=== PATIENT | female | born 2000 | race Caucasian/White ===

== ENCOUNTER 2021-09-01 15:20 | Emergency (ER) | payer BC, MEDICAID, SELFPAY ==
[2021-09-01 15:22] VITALS: BP 149/60; PULSE 92; RESP 17; TEMP 36.2; O2SAT 99
[2021-09-01 17:56] VITALS: BP 138/78; PULSE 78; RESP 20; O2SAT 100
[2021-09-01] MEDS: SODIUM CHLORIDE 0.9% IV 1,000 ML 999 ML IV CONT (18:14)
[2021-09-01] MEDS: diphenhydrAMINE HCl INJ 50 MG/ML VIAL 25 MG IV PUSH (18:16)
[2021-09-01] MEDS: PROCHLORPERAZINE EDISYLATE 10 MG/2 ML VIAL IV PUSH (18:17)
--- NOTE | 2021-09-01 18:52 | ED.HA ---
HPI - Headache General Chief Complaint: Headache Stated Complaint: headache Time Seen by Provider: 09/01/21 17:50 Source: patient History of Present Illness HPI Narrative: Patient presents with headache. Reports headache started yesterday has been slowly been getting worse she took Excedrin which did not seem to help so she came to the ER for evaluation. She reports a history of migraine headaches usually is able to control them with Excedrin however today's headache did not resolve. She reported some nausea and lightheadedness earlier but the symptoms have resolved. She denies any focal numbness or weakness. She denies any changes in vision she denies any recent spinal instrumentation denies any IV drug use Related Data Allergies Allergy/AdvReac Type Severity Reaction Status Date / Time No Known Allergies Allergy Verified 09/01/21 18:17 Review of Systems Review of Systems: CONSTITUTIONAL: Denies fever, chills, or sweats. EYES: Denies visual changes, redness, or discharge. ENT: Denies rhinorrhea, congestion, sore throat, or otalgia. CARDIOVASCULAR: Denies chest pain, palpitations, or edema. RESPIRATORY: Denies cough or dyspnea. GASTROINTESTINAL: Denies abdominal pain, current nausea, vomiting, or diarrhea. GENITOURINARY: Denies dysuria or hematuria. SKIN: Denies rash or itching. MUSCULOSKELETAL: Denies back pain, joint pain, or myalgia. NEUROLOGIC: Denies numbness, dizziness, or weakness. PSYCHIATRIC: Denies anxiety or depression. All systems reviewed & are unremarkable except as noted in HPI and below PMFSH Past Medical History Medical History (Updated 09/01/21 @ 18:55 by Kian Batres MD) Migraines Social History Social History (Updated 09/01/21 @ 18:53 by Kian Batres MD) Smoking status: Current every day smoker Alcohol intake: never Substance use: never Exam Narrative: GENERAL: Well-appearing, well-nourished, and in no acute distress. HEAD: Normocephalic, atraumatic. EYES: PERRLA and EOMI. ENT: Nares clear, no rhinorrhea or epistaxis. Mucous membranes moist. NECK: Supple. No masses. No JVD CHEST: Clear to auscultation. No respiratory distress. No wheezes rales or rhonchi HEART: Regular rate and rhythm. No murmur heard. Normal peripheral pulses. ABDOMEN: Soft, nontender, nondistended, normal active bowel sounds. EXTREMITIES: Normal range of motion. No edema. SKIN: Warm, dry, no rash. NEURO: Cranial nerves II through XII are intact patient has 5 out of 5 strength in all extremities sensation intact to light touch in all extremities alert and oriented x3. PSYCH: Normal mood and affect. Course Reevaluation(s) Reevaluation #1: Patient reports feeling much improved. Plan reviewed with patient. Patient comfortable with outpatient plan. Date: 09/01/21 Time: 18:54 Vital Signs Vital signs: Vital Signs Temperature 36.2 C L 09/01/21 15:22 Pulse Rate 92 09/01/21 15:22 Respiratory Rate 17 09/01/21 15:22 Blood Pressure 149/60 H 09/01/21 15:22 Pulse Oximetry 99 09/01/21 15:22 Temperature 36.2 C L 09/01/21 15:22 Pulse Rate 72 09/01/21 19:40 Respiratory Rate 18 09/01/21 19:40 Blood Pressure 132/78 09/01/21 19:40 Pulse Oximetry 99 09/01/21 19:40 MDM - Headache MDM Narrative Medical decision making narrative: H&P as above, vss, pt looks clinically well, exam without focal neurological deficits, labs/img considered, symptomatic relief available as needed, on reevaluation pt continues to looks clinically well. Suspect migraine headache, dns intracranial hemorrhage, encephalitis, meningitis, mass. plan to tx/monitor as op w/ pcm f/u findings/plan discussed with pt, pt agree/comfortable with plan, return precautions given Discharge Plan Discharge Clinical Impression: Headache Qualifiers: Headache type: unspecified Headache chronicity pattern: unspecified pattern Intractability: not intractable Qualified Code(s): R51.9 - Headache, unspecified Patient Dispositi
[2021-09-01 19:40] VITALS: BP 132/78; PULSE 72; RESP 18; O2SAT 99
== END 2021-09-01 19:41 | disposition home or self-care (01) ==
PROVIDERS: Emergency Provider Emergency Medicine
DX: R51.9 Headache, unspecified (principal); F17.200 Nicotine dependence, unspecified, uncomplicated
CPT/HCPCS: 96361; 96365; 96375; 99284; J0131; J0780; J1200; J7030

== ENCOUNTER 2022-02-15 19:50 | Emergency (ER) | payer MEDICAID, SELFPAY ==
[2022-02-15 19:52] VITALS: BP 118/52; PULSE 91; RESP 16; TEMP 36.8; O2SAT 98
--- NOTE | 2022-02-15 21:57 | PC.NURSE ---
Pt walks out [facility] states she has 4week old puppies at home and has to get home to them.
== END 2022-02-15 22:09 | disposition left against medical advice (07) ==
LOC: ANHED 22:07
DX: S40.022A Contusion of left upper arm, initial encounter (principal); S40.021A Contusion of right upper arm, initial encounter
CPT/HCPCS: 99199

== ENCOUNTER 2022-05-03 23:29 | Emergency (ER) | payer OTHER, SELFPAY ==
[2022-05-03 23:30] VITALS: BP 120/57; PULSE 68; RESP 18; TEMP 36.6; O2SAT 99
[2022-05-04 01:41] LABS: Basophils Absolute Auto 0.1 K/mm3 (0.0-0.1); Basophils Percent Auto 0.5 % (0.2-1.2); Eosinophils Absolute Auto 0.3 K/mm3 (0-0.3); Eosinophils Percent Auto 2.1 % (0-4.4); Hematocrit 38.2 % (37.0-47.0); Hemoglobin 13.1 g/dL (12.0-15.0); Immature Granulocyte Absolute 0.05 K/mm3 (0.00-0.031); Immature Granulocyte Percent A 0.4 % (0-0.5); Lymphocytes Absolute Auto 3.61 K/mm3 (0.9-3.2); Lymphocytes Percent Auto 28.6 % (18.3-44.2); Mean Corpuscular HGB Conc 34.3 g/dl (32-36); Mean Corpuscular Volume 93.2 fl (80-100); Mean Platelet Volume 8.9 fl (7.4-10.4); Monocytes Absolute Auto 0.6 K/mm3 (0.1-0.6); Monocytes Percent Auto 4.8 % (2.6-8.5); Neutrophils Percent Auto 63.6 % (45.5-73.1); Platelet Count Result 284 k/mm3 (150-375); Red Cell Distribution Width 11.9 % (11.5-14.5); White Blood Count 12.6 K/mm3 (4.5-10.0)
[2022-05-04 02:06] LABS: Alanine Aminotransferase 18 U/L (6-35); Alkaline Phosphatase 56 U/L (38-126); Anion Gap 5 mmol/L (8-16); Aspartate Amino Transferase 20 U/L (14-36); Bilirubin,Total 0.2 mg/dL (0.2-1.3); Blood Urea Nitrogen 11 mg/dL (7-17); Calcium 8.5 mg/dL (8.4-10.2); Carbon Dioxide 26 mmol/L (22-30); Chloride 105 mmol/L (98-107); Estimated CRCL calculation 119 ml/min; Estimated Glomerular Filt Rate > 60; Glucose 95 mg/dL (65-110); Lipase 207 U/L (23-300); Potassium 3.7 mmol/L (3.4-5.0); Sodium 136 mmol/L (137-145)
[2022-05-04 02:15] VITALS: BP 83/65; PULSE 72; RESP 18; O2SAT 99
[2022-05-04 02:16] LABS: Appearance Urine Clear (Clear); Bilirubin Urine Negative (Negative); Blood Urine Negative (Negative); Color Urine Yellow (Yellow); Glucose Urine UA Negative (Negative); Ketones Urine Negative (Negative); Leukocyte Esterase Ur Negative LEU/UL (Negative); Nitrate Urine Negative (Negative); Protein Urine Negative (Negative); Urobilinogen Urine 0.2 mg/dL (<2.0); pH Urine 8.5 (5.0-9.0)
[2022-05-04 02:22] LABS: RBC Urine 0-2 /hpf (0-2); Squamous Epithelial Cell Urine Occasional /hpf (Few)
[2022-05-04 02:24] LABS: Add Urine Microscopic? NO
[2022-05-04 02:43] LABS: Beta HCG Quantitative < 2.39 mIU/ML
--- NOTE | 2022-05-04 03:48 | ED.GENADULT ---
HPI - General Adult General Chief complaint: Abdominal Pain Stated complaint: pain , throwing up Time Seen by Provider: 05/04/22 01:41 History of Present Illness HPI narrative: Patient is a 21-year-old female who presents with lower abdominal cramping. Ongoing over the last week. Associate with nausea. Patient vomited today. She feels like her hormones are going crazy. She reports she has been trying to get and was seen at [facility] but her evaluation did not reveal any . She reports she has had test that were positive in the last 2 days but also test that read your as well. She has no vaginal bleeding or vaginal discharge. Pain is cramping and more left-sided. No radiation. No urinary frequency urgency or dysuria. Related Data Allergies Allergy/AdvReac Type Severity Reaction Status Date / Time No Known Allergies Allergy Verified 09/01/21 18:17 Review of Systems Review of Systems: All systems reviewed & are unremarkable except as noted in HPI and below Constitutional: Constitutional: Denies chills and Denies fever(s) Cardiovascular: Cardiovascular: Denies chest pain and Denies rapid heart rate Respiratory: Respiratory: Denies cough and Denies dyspnea Gastrointestinal: Gastrointestinal: Reports abdominal pain, Denies constipation, Denies diarrhea, Reports nausea and Reports vomiting Genitourinary: Genitourinary: Denies abnormal vaginal bleeding, Denies dysuria, Denies pelvic pain, Denies flank pain and Denies vaginal discharge PMFSH Past Medical History Medical History (Updated 05/04/22 @ 03:49 by Avni Hernandez MD) Migraines Surgical History Surgical History (Updated 05/04/22 @ 19:29 by Avni Hernandez MD) No history of previous surgery Social History Social History (Updated 09/01/21 @ 18:53 by Kian Batres MD) Smoking status: Current every day smoker Alcohol intake: never Substance use: never Exam Narrative: GENERAL: Well-appearing, well-nourished, and in no acute distress. HEAD: Normocephalic, atraumatic. ENT: Mucous membranes moist. CHEST: Clear to auscultation. No respiratory distress. HEART: Regular rate and rhythm. Normal peripheral pulses. ABDOMEN: Soft, nontender, nondistended, normal active bowel sounds. EXTREMITIES: Normal range of motion. No edema. SKIN: Warm, dry, no rash. NEURO: Alert and oriented x3. PSYCH: Normal mood and affect. Course Course Emergency Course: Patient was having some left lower quadrant cramping but no rebound or guarding on exam. Patient may be developing GI illness. No evidence of . Recommend follow-up with PCP. Vital Signs Vital signs: Vital Signs Temperature 97.9 F 05/03/22 23:30 Pulse Rate 68 05/03/22 23:30 Respiratory Rate 18 05/03/22 23:30 Blood Pressure 120/57 L 05/03/22 23:30 Pulse Oximetry 99 05/03/22 23:30 Temperature 97.9 F 05/03/22 23:30 Pulse Rate 82 05/04/22 03:55 Respiratory Rate 16 05/04/22 03:55 Blood Pressure 107/51 L 05/04/22 03:55 Pulse Oximetry 100 05/04/22 03:55 Oxygen Delivery Room Air 05/04/22 02:15 Medical Decision Making Vital Signs Vital Signs: Vital Signs Temperature 97.9 F 05/03/22 23:30 Pulse Rate 68 05/03/22 23:30 Respiratory Rate 18 05/03/22 23:30 Blood Pressure 120/57 L 05/03/22 23:30 Pulse Oximetry 99 05/03/22 23:30 Temperature 97.9 F 05/03/22 23:30 Pulse Rate 82 05/04/22 03:55 Respiratory Rate 16 05/04/22 03:55 Blood Pressure 107/51 L 05/04/22 03:55 Pulse Oximetry 100 05/04/22 03:55 Oxygen Delivery Room Air 05/04/22 02:15 Lab Data Result diagrams: 05/04/22 01:26 05/04/22 01:26 Labs: Lab Results 05/04/22 05/04/22 05/04/22 Range/Units 01:26 01:26 01:26 WBC 12.6 H (4.5-10.0) K/mm3 RBC 4.10 L (4.2-5.4) M/mm3 Hgb 13.1 (12.0-15.0) g/dL Hct 38.2 (37.0-47.0) % MCV 93.2 (80-100) fl MCH 32.0 (26
[2022-05-04 03:55] VITALS: BP 107/51; PULSE 82; RESP 16; O2SAT 100
== END 2022-05-04 03:57 | disposition home or self-care (01) ==
PROVIDERS: Physician Assistant; Emergency Provider Emergency Medicine
DX: R10.32 Left lower quadrant pain (principal); F17.200 Nicotine dependence, unspecified, uncomplicated
CPT/HCPCS: 36415; 80053; 81003; 81025; 83690; 84702; 85025; 99283